=== PATIENT | male | born 1955 | race Hispanic/Latino ===

== ENCOUNTER 2016-07-15 08:21 | Emergency (ER) | payer OTHER ==
[~2016-07-15] VITALS: Ht 157.5 cm; Wt 59.1 kg
[2016-07-15 08:28] VITALS: BP 136/88; PULSE 114; RESP 18; O2SAT 95
--- NOTE | 2016-07-15 08:54 | ED.REPORT ---
HPI-Abd Pain M 40 and Over Date of Service Jul 15, 2016 ED Provider: Willian Isaacs MD 60 year old Swedish-speaking male presents to the ER accompanied by his complaining of a week of diarrhea. Symptoms seemed to be improving, then worsened again three days ago. Associated symptoms include nausea, mild upper abdominal pain, and subjective fever this morning. Patient denies bloody stool and vomiting. He has treated symptoms with Imodium with no relief. reports that patient has similar symptoms recurrently every 4 months or so. Nursing Notes Stated Complaint: DIARRHEA Chief Complaint: Male Abdominal Pain Nursing Notes Reviewed: Yes Allergies: Coded Allergies: No Known Allergies (Unverified , 07/15/16) General Time Seen by MD: 08:54 Chief Complaint Diarrhea moderate Hx Obtained From: Patient, Spouse Arrived By: Walk-in Sudden in Onset?: No Onset Occurred: 1 week ago Symptom Duration: Since onset Associated with: Reports: Fever (Subjective), Nausea, Denies: Hematemesis, Hematochezia, Vomiting Pertinent Negative: Pt denies other symptoms Similar Sx Previous: Yes Past Medical History Past Medical History None reported Smoking History Never Smoker Social History Alcohol Use: Denies alcohol use Drug Use: Denies drug use Other Social History: Good social support, Ambulatory Status Independent Review of Systems Constitutional: Reports: Fever (Subjective) Respiratory: Denies: Shortness of breath Cardiovascular: Denies: Chest pain GI: Reports: Abdominal pain (Mild, epigastric), Diarrhea, Nausea, Denies: Bloody/tarry stool, Hematemesis, Hematochezia, Vomiting Complete sys rev & neg: except as marked. Physical Exam Initial Vital Signs Vital Signs (First) Date Time Temp Pulse Resp B/P Pulse Ox O2 Delivery O2 Flow Rate FiO2 07/15/16 08:28 36.9 114 18 136/88 95 07/15/16 10:14 Room Air Initial VS: Reviewed Head / Eyes: Atraumatic, Normocephalic, PERRL Neck: Supple, Non-tender, Full range of motion Extremities: Vascular intact, Neuro intact, No swelling, No tenderness Skin: Warm, Dry, No cyanosis Neurologic: Alert, Oriented, Nonfocal General/Constitutional: Awake, Alert, Well developed, Well nourished Respiratory / Chest: Breath sounds NL, Breath sounds = bilat, No respiratory distress, No rales, No rhonchi, No wheezing Cardiovascular: Heart rate NL, Regular rhythm, Heart sounds NL, Peripheral circulation NL Abdomen: Soft, No guarding, No rebound, No distention Tenderness/Guarding/Rebound: Positive: Tender epigastric (mild) Interpretation & Diagnostics Lab Results Interpretation Result Diagram: 07/15/16 0950 07/15/16 0950 Test 07/15/16 09:50 White Blood Count 10.3th/mm3 (3.8-10.1) Red Blood Count 4.30mil/mm3 (4.40-5.80) Hemoglobin 12.9g/dL (13.8-17.2) Hematocrit 37.6% (41.0-50.0) Mean Corpuscular Volume 87.4fL (81-100) Mean Corpuscular Hemoglobin 30.0pg (27.0-35.0) Mean Corpuscular Hemoglobin Concent 34.3% (32.0-37.0) Red Cell Distribution Width 13.4% (12.3-15.4) Platelet Count 308bil/L (150-400) Neutrophils (%) (Auto) 85.1% (40-74) Lymphocytes (%) (Auto) 5.5% (14-46) Monocytes (%) (Auto) 8.7% (4-12) Eosinophils (%) (Auto) 0.2% (0-5) Basophils (%) (Auto) 0.1% (0-3) Sodium Level 131mEq/L (134-144) Potassium Level 4.1mEq/L (3.5-5.2) Chloride Level 97mEq/L (97-108) Carbon Dioxide Level 21mmol/L (18-29) Blood Urea Nitrogen 9mg/dL (6-24) Creatinine 0.66mg/dL (0.76-1.27) Estimat Glomerular Filtration Rate 132mL/min (>59) Glucose Level 101mg/dL (60-99) Calcium Level 8.2mg/dL (8.5-10.1) Total Bilirubin 0.3mg/dL (0.0-1.2) Aspartate Amino Transf (AST/SGOT) 34U/L (0-50) Alanine Aminotransferase (ALT/SGPT) 53U/L (0-44) Alkaline Phosphatase 74U/L (25-150) Total Protein 6.9g/dL (6.4-8.4) Albumin 3.8g/dL (3.4-5.0) Lipase 27U/L (13-60) Re-Eval/Medical Decision Med Decision/Clinical Course This gentleman appears well to me. The intermittent diarrhea from which she has been suffering certainly needs further evaluation but I do not believe any further evaluations required emergency department this time. I will prescribe symptomatically therapy and outpatient follow-up. Time of Eval: 10:56 Re-Evaluation/Progress Note: Discussed lab results and plan to discharge. Patient is amenable to the plan. Return precautions given. All other questions addressed. Counseled Regarding: Diagnosis, Lab results, Need for follow-up, When/why to return to ED Discharge & Departure Primary Impression: Diarrhea Disposition: Home Vital Signs - All Vital Signs Date Time Temp Pulse Resp B/P Pulse Ox O2 Delivery O2 Flow Rate FiO2 07/15/16 10:14 36.8 94 16 135/59 95 Room Air 07/15/16 08:28 36.9 114 18 136/88 95 )( All Prior VS Reviewed: Yes Condition: Stable Patient Instructions: Acute Diarrhea (ED) Additional Instructions: Your lab results were reassuring. I do not believe that there is any dangerous or life-threatening cause for your symptoms. Drink plenty of fluids. Take Imodium 1 tablet every time you have a diarrhea up to 6 tablets per day. Call your primary care provider at [facility] to discuss the possibility of gastroenterology referral. Return to the ER if you have blood in your diarrhea, vomiting, fever, chills, or any other worsening or concerning symptoms. Referrals: [facility] (PCP) Rosa Attestation Portions of this note were transcribed by Brea Haro. I, Dr. Isaacs, personally performed the history, physical exam and medical decision-making; I reviewed and confirmed the accuracy of the information in the transcribed note. Signed by: Rosa Connelly, 07/15/2016 and 10:59 copies to: [facility] Willian Isaacs MD Jul 15, 2016 08:54 BREA HARO Jul 15, 2016 09:03
[2016-07-15] MEDS ORDERED: 0.9% Sodium Chloride 1,000 ML IV ONE (09:15)
[2016-07-15 10:05] LABS: BASOPHILS % (AUTO) 0.1 % (0-3); EOSINOPHILS % (AUTO) 0.2 % (0-5); MONOCYTES % (AUTO) 8.7 % (4-12); Mean Corpuscular Volume 87.4 fL (81-100); NEUTROPHILS % (AUTO) 85.1 % (40-74); Platelet Count 308 bil/L (150-400)
[2016-07-15 10:14] VITALS: BP 135/59; PULSE 94; RESP 16; O2SAT 95
== END 2016-07-15 11:26 | disposition home or self-care (01) ==
LOC: SED 08:21
DX: R19.7 Diarrhea, unspecified (principal); R10.13 Epigastric pain
CPT/HCPCS: 36415; 80053; 83690; 85025; 96360; 99284; J7030

== ENCOUNTER 2016-08-16 12:30 | Day surgery (SDC) | payer OTHER ==
[~2016-08-16] VITALS: Ht 157.5 cm; Wt 55.0 kg
[~2016-08-16 12:30] MED LIST: 0.9% Sodium Chloride 1,000 ML IV PRN; Sodium Chloride LOK Flush 10 mL Syringe IV PRN; fentaNYL-PF 50 mCg/mL 2 mL Inj IVPUSH PRN
[2016-08-16 14:02] VITALS: BP 114/71; PULSE 54; RESP 15; O2SAT 96
[2016-08-16] MEDS ORDERED: LOPE-147 PO (14:05)
[2016-08-16] MEDS ORDERED: METR500T19 PO (14:59)
[2016-08-16] MEDS ORDERED: ONDA-53 PO (14:59)
[2016-08-16] MEDS ORDERED: LEVO500T79 PO (14:59)
[2016-08-16 15:08] VITALS: BP 111/76; PULSE 56; RESP 14; O2SAT 95
[2016-08-16 15:18] VITALS: BP 101/66; PULSE 56; RESP 14; O2SAT 95
[2016-08-16 15:28] VITALS: BP 103/63; PULSE 49; RESP 14; O2SAT 96
--- NOTE | 2016-08-16 15:30 | ENDO ---
[address] [address] ENDOSCOPY PROCEDURE PATIENT: ADELA HENDRICKSON : 1955 MR#: [id number] ADMIT: 08/16/2016 JOB ID: [id number] DATE: 08/16/2016 TYPE OF OPERATION: 1. Esophagogastroduodenoscopy with biopsy. 2. Colonoscopy with biopsy. PREOPERATIVE DIAGNOSIS(ES): 1. Gastroesophageal reflux disease. 2. Abnormal CT scan and diarrhea. POSTOPERATIVE DIAGNOSIS(ES): 1. Large duodenal diverticulum seen in the first portion. 2. Mild nonerosive gastritis status post biopsy. 3. Mild erythema seen in the sigmoid colon status post biopsy. ANESTHESIA: 1. Fentanyl 100 mcg. 2. Versed 5 mg IV administered. COMPLICATION: None. BLOOD LOSS: Minimal. DESCRIPTION OF PROCEDURE: After the risks and benefits were explained to the patient, informed consent was obtained. After anesthesia administered, the upper endoscope was inserted into the mouth intubating the esophagus, stomach, second portion of duodenum. Mucosa carefully examined. After procedure was done, the scope was withdrawn and procedure terminated. Colonoscope was then inserted from the rectum to the terminal ileum. Mucosa carefully examined. Prep of the patient was fair. After procedure was done, the scope withdrawn and procedure terminated. FINDINGS: Upon inspection of the esophagus, the esophagus is normal without masses, ulcers, lesions. Z-line located at 40 cm from incisors. Upon entering the stomach, there is mild erythema that was seen throughout the entire stomach. Retroflexion was normal. No masses or ulcers were seen. The duodenal bulb was normal but there was a large diverticulum seen in the first portion of the duodenum. The second portion of the duodenum was normal. Biopsies taken at duodenum, antrum, and body of stomach and the distal esophagus. Upon inspection of the anus, no masses, hemorrhoids, ulcers are seen. Throughout the entire examination, there were no polyps or masses. There was mild erythema which was patchy seen in the sigmoid colon which was biopsied. Biopsies also taken in the terminal ileum and random colon. IMPRESSIONS: 1. Mild nonerosive gastritis. 2. Large diverticulum seen the first portion of duodenum. 3. Mild erythema in the sigmoid colon status post biopsy. RECOMMENDATIONS: 1. Await pathology results. 2. Followup with Emma Delphine in the GI clinic. 3. Repeat colonoscopy in 10 years for colorectal cancer screening if patient is average risk. MTDD
[2016-08-16 15:38] VITALS: BP 105/66; PULSE 52; RESP 16; O2SAT 97
--- NOTE | 2016-08-19 15:34 | PATH ---
SURGICAL PATHOLOGY Attending Physician:Raji Neumann MD CASE STATUS: Signed Out PATIENT NAME: ADELA HENDRICKSON PID: [id number] : 1955 DATE COLLECTED:08/16/2016 00:00 SPECIMEN: 1: Duodenum, Biopsy 2: Stomach, Antrum, Biopsy 3: Gastric, Biopsy 4: Esophagus, Biopsy 5: Ileum, Biopsy 6: Colon, Biopsy 7: Colon, Biopsy CLINICAL HISTORY: 1). DUODENUM BIOPSY 2). ANTRUM BIOPSY 3). GASTRIC BIOPSY OF BODY 4). DISTAL ESOPHAGUS 5). TERMINAL ILEUM BIOPSY 6). RANDOM COLON BIOPSY 7). SIGMOID COLON BIOPSY FINAL DIAGNOSIS: 1.DUODENUM BIOPSY: FRAGMENTS OF NORMAL-APPEARING DUODENAL MUCOSA. Normal delicate mucosal villi present. Negative for significant inflammation, dysplasia and malignancy. 2.ANTRUM BIOPSY: MILD CHRONIC GASTRITIS INVOLVING ANTRAL MUCOSA. Negative for evidence of Helicobacter. Negative for intestinal metaplasia. Negative for dysplasia and malignancy. 3.GASTRIC BODY BIOPSY: CHANGES CONSISTENT WITH BENIGN FUNDIC GLAND POLYP. Negative for evidence of Helicobacter. Negative for intestinal metaplasia. Negative for significant atypia. 4.DISTAL ESOPHAGUS BIOPSY: FRAGMENTS OF SQUAMOUS MUCOSA AND GASTRIC CARDIA-TYPE MUCOSA, NEGATIVE FOR SPECIALIZED METAPLASIA OF ESTRADA' S-TYPE ESOPHAGUS. Negative for dysplasia and malignancy. Eosinophils are not increased. 5.TERMINAL ILEUM BIOPSY: FRAGMENTS OF NORMAL-APPEARING TERMINAL ILEUM MUCOSA. Negative for granulomas. Negative for significant inflammation, dysplasia and malignancy. 6.RANDOM COLON BIOPSIES: FRAGMENTS OF NORMAL-APPEARING COLON MUCOSA. Negative for significant architectural distortion. Negative for significant inflammation, dysplasia and malignancy. 7.SIGMOID COLON BIOPSY: FRAGMENTS OF NORMAL-APPEARING COLON MUCOSA. Negative for significant architectural distortion. Negative for significant inflammation, dysplasia and malignancy. ICD10 code K29.70 GROSS DESCRIPTION: Received are seven formalin-filled containers, each labeled with the patient' s name. 1. Received in formalin, labeled with the patient' s name and "duodenum biopsy", are two fragments of sanchez, soft tissue ranging in size from 0.1 x 0.1 x 0.1 cm to 0.2 x 0.1 x 0.1 cm. All fragments are totally submitted in cassette 1A. 2. Received in formalin, labeled with the patient' s name and "antrum biopsy", are two fragments of sanchez, soft tissue ranging in size from less than 0.1 cm by less than 0.1 cm by 0.1 cm to 0.2 x 0.2 x 0.2 cm. All fragments are totally submitted in cassette 2A. 3. Received in formalin, labeled with the patient' s name and "gastric body biopsy", is one fragment of sanchez, soft tissue measuring 0.4 x 0.2 x 0.1 cm. The fragment is totally submitted in cassette 3A. 4. Received in formalin, labeled with the patient' s name and "distal esophagus biopsy", are two fragments of sanchez, soft tissue ranging in size from 0.1 x 0.1 x 0.1 cm to 0.3 x 0.2 x 0.1 cm. All fragments are totally submitted in cassette 4A 5. Received in formalin, labeled with the patient' s name and "terminal ileum biopsy", are two fragments of sanchez, soft tissue ranging in size from 0.1 x 0.1 x 0.1 cm to 0.2 x 0.1 x 0.1 cm. All fragments are totally submitted in cassette 5A. 6. Received in formalin, labeled with the patient' s name and "random colon biopsy", are multiple fragments of sanchez, soft tissue ranging in size from 0.1 x 0.1 x 0.1 cm to 0.2 x 0.2 x 0.2 cm. All fragments are totally submitted in cassette 6A. 7. Received in formalin, labeled with the patient' s name and "sigmoid colon BX", are multiple fragments of sanchez, soft tissue ranging in size from 0.1 x 0.1 x 0.1 cm to 0.2 x 0.1 x 0.1 cm. All fragments are totally submitted in cassette 7A. ([id number]) MICRO DESCRIPTION: See diagnosis. ICD-9 CODES: CPT CODES: 1: 62678 2: 07204 3: 05113 4: 06209 5: 12911 6: 20990 7: 45868 Electronically Signed Out Toney Strickland MD [facility] Pathology [facility] [address], [place] [address] Technical component performed at [facility], [address], [place], [address]
== END 2016-08-16 23:59 | disposition home or self-care (01) ==
LOC: END 12:30
PROVIDERS: ATTEND Internal Medicine Gastroenterology
DX: K29.50 Unspecified chronic gastritis without bleeding (principal); K31.7 Polyp of stomach and duodenum; K21.9 Gastro-esophageal reflux disease without esophagitis; R13.10 Dysphagia, unspecified; K57.30 Diverticulosis of large intestine without perforation or abscess without bleeding
CPT/HCPCS: 43239; 45380; 99153; G0500; J7030